=== PATIENT | female | born 1980 | race Two or more races ===

== ENCOUNTER 2017-06-15 08:04 | Emergency (ER) | payer SELFPAY ==
[~2017-06-15] VITALS: Ht 170.2 cm; Wt 68.0 kg
[2017-06-15 08:22] VITALS: BP 115/56
[2017-06-15] MEDS ORDERED: TETRACAINE HCL/PF 0.5% UD 2 ML BOTTLE ONE (08:26)
[2017-06-15] MEDS ORDERED: FLUORESCEIN SODIUM OPHTH 1 EA STRIP ONE (08:26)
[2017-06-15] MEDS ORDERED: TETRACAINE HCL/PF 0.5% UD 2 ML BOTTLE OP ONE (08:30)
== END 2017-06-15 08:58 | disposition home or self-care (01) ==
LOC: ER 08:08
DX: S05.02XA Injury of conjunctiva and corneal abrasion without foreign body, left eye, initial encounter (principal); X58.XXXA Exposure to other specified factors, initial encounter; Y93.89 Activity, other specified; Y92.89 Other specified places as the place of occurrence of the external cause; Y99.8 Other external cause status
CPT/HCPCS: 99283; A4606 ×2; Z7610 ×2

== ENCOUNTER 2018-04-22 19:31 | Emergency (ER) | payer MEDICAID ==
[~2018-04-22] VITALS: Ht 170.2 cm; Wt 72.6 kg
--- NOTE | 2018-04-22 19:55 | NUR ---
Pt came in c/o sore throat x 1 day, no cough, fever, no N/V. She is A, O/4, on RA, moves all extremities without difficulty. Seen and evaluated by PA at [facility].
[2018-04-22] MEDS ORDERED: IBUPROFEN 600 MG TABLET PO ONE ×2 (20:30→20:52)
[2018-04-22 22:01] VITALS: BP 125/82
--- NOTE | 2018-04-22 22:01 | NUR ---
Patient discharged to home in stable condition. Written and verbal after care instructions and prescription given. Patient verbalizes understanding of instruction.Pt ambulatory with a steady gait. VSS
== END 2018-04-22 22:02 | disposition home or self-care (01) ==
LOC: ER 19:34
DX: J06.9 Acute upper respiratory infection, unspecified (principal); E78.5 Hyperlipidemia, unspecified; Z88.2 Allergy status to sulfonamides

== ENCOUNTER 2018-06-03 14:55 | Emergency (ER) | payer OTHER, MEDICAID ==
[~2018-06-03] VITALS: Ht 170.2 cm; Wt 86.2 kg
[2018-06-03 15:26] VITALS: BP 140/83
--- NOTE | 2018-06-03 15:29 | NUR ---
DR. LEONARD AT BEDSIDE FOR EVAL.
--- NOTE | 2018-06-03 15:36 | NUR ---
URINE SPECIMEN COLLECTED AND SENT TO LAB.
[2018-06-03 15:45] LABS: APPEARANCE,URINE Clear (CLEAR); BILIRUBIN,URINE Negative (NEGATIVE); BLOOD, URINE Negative Ery/uL (NEGATIVE); COLOR,URINE Yellow (YELLOW); KETONES,URINE Negative (NEGATIVE); LEUKOCYTE ESTERASE ,URINE Small (NEGATIVE); NITRITE, URINE Negative (NEGATIVE); PROTEIN,URINE Negative (NEGATIVE); UGLUCOSE Negative (NEGATIVE); UROBILINOGEN,URINE 0.2 EU/dL (0.2)
[2018-06-03 16:17] LABS: BACTERIA,URINE Moderate /HPF (None Seen); RBC,URINE 0-2 /HPF (0-2); SQUAMOUS EPITHELIAL CELL,UR Moderate /HPF (None Seen)
--- NOTE | 2018-06-03 17:19 | NUR ---
Patient discharged to home in stable condition. Written and verbal after care instructions given. Patient verbalizes understanding of instruction.
== END 2018-06-03 17:19 | disposition home or self-care (01) ==
LOC: ER 14:55
DX: N39.0 Urinary tract infection, site not specified (principal); E78.5 Hyperlipidemia, unspecified; Z88.2 Allergy status to sulfonamides
CPT/HCPCS: 76856-TC; 81000-TC; 84703-TC; 87086-TC

== ENCOUNTER 2018-06-12 19:48 | Emergency (ER) | payer MEDICAID, OTHER ==
[~2018-06-12] VITALS: Ht 170.2 cm; Wt 83.9 kg
[2018-06-12 20:48] VITALS: BP 151/69
[2018-06-12] MEDS ORDERED: IBUPROFEN 600 MG TABLET PO ONE ×2 (21:46→22:00)
== END 2018-06-12 22:06 | disposition home or self-care (01) ==
LOC: ER 19:48
DX: M54.41 Lumbago with sciatica, right side (principal); E78.5 Hyperlipidemia, unspecified; Z88.2 Allergy status to sulfonamides; Z87.440 Personal history of urinary (tract) infections